=== PATIENT | female | born 1960 | race Caucasian/White ===

== ENCOUNTER → 2017-02-02 | Outpatient (REF) | payer OTHER ==
[~2017-02-02] MED LIST: CARB1TAB20 PO; D 1010004 PO; DIAZ10TA2 PO; DIAZ5TAB PO; FLUO40CA PO; LISI-542 PO; LISI10TA4 PO; NICO21PAT TD; PROP40TA PO; SERT50TA PO; TOFR50TA PO; TRAZ10TA PO; VITA100066 PO; VITA500T88 PO; VITMTA PO
[2017-02-02 19:37] LABS: FREE T4 0.91 NG/DL (0.76-1.46)
== END ==
LOC: M LAB REF 16:58
PROVIDERS: ATTEND Internal Medicine Nephrology
DX: E87.1 Hypo-osmolality and hyponatremia (principal)

== ENCOUNTER 2017-06-13 12:10 | Day surgery (SDC) | payer OTHER ==
[~2017-06-13] VITALS: Ht 167.6 cm; Wt 68.9 kg
[2017-06-13] MEDS ORDERED: LIDOCAINE 1% SDV 5 ML VIAL SQ PRN (12:15)
[2017-06-13] MEDS ORDERED: LR 1,000 ML IV ONE (12:15)
[2017-06-13] MEDS ORDERED: LIDOCAINE 2% INJ 100 MG/5 ML SDV (FOR ANES.) As Ordered ONE (13:16)
[2017-06-13] MEDS ORDERED: PROPOFOL 200 MG/20 ML VIAL As Ordered ONE (13:16)
[2017-06-13] MEDS ORDERED: MIDAZOLAM INJ 2 MG/2 ML VIAL (J2250) As Ordered ONE (13:17)
[2017-06-13] MEDS ORDERED: fentaNYL 100 MCG/2 ML INJECTION (J3010) As Ordered ONE (13:17)
[2017-06-13] MEDS ORDERED: CIPRODEX OTIC SUSP 7.5ML As Ordered ONE (14:14)
[2017-06-13] MEDS ORDERED: ONDANSETRON 4MG/2ML VIAL (J2405) As Ordered ONE (14:38)
[2017-06-13] MEDS ORDERED: LR 1,000 ML IV SCH (15:45)
[2017-06-13] MEDS ORDERED: ONDANSETRON 4MG/2ML VIAL (J2405) IV PRN (15:45)
[2017-06-13] MEDS ORDERED: PERCOCET 5MG/325MG TAB PO PRN (15:45)
[2017-06-13 16:14] VITALS: BP 212/93
--- NOTE | 2017-06-17 13:32 | RO ---
DATE OF PROCEDURE: 06/13/2017 PREOPERATIVE DIAGNOSIS: Chronic otitis media with effusion with conductive hearing loss. POSTOPERATIVE DIAGNOSES: 1. Chronic otitis media with effusion with conductive hearing loss. 2. Sensorineural hearing loss. PROCEDURE: Bilateral myringotomy tubes. SURGEON: Dr. Sanjeev [place] BAILIFF: ANESTHESIA: INDICATION: This is a 57-year-old who presents with a significant mixed hearing loss associated with a conductive loss of 30 dB from middle ear fluid. Additionally, she has a sensorineural loss in both ears. DESCRIPTION OF PROCEDURE: Satisfactory mask anesthesia administered. Right ear examined and cleaned under the microscope. An anterior inferior myringotomy was made. Serous fluid was suctioned from the middle ear. Ciprodex drops were used to irrigate, and a beveled bobbin tube was inserted. Ciprodex drops were instilled. The left ear was examined and cleaned under the microscope. Tympanic membrane retracted. No obvious inflammatory changes were noted. Anterior inferior myringotomy made. Ciprodex drops used to irrigate and a beveled bobbin tube inserted. Ciprodex drops instilled. She tolerated procedure well and was sent to recovery in satisfactory condition, and she will be seen back in the office in 1 week.
== END 2017-06-13 16:20 | disposition home or self-care (01) ==
LOC: M SDC 12:10
PROVIDERS: ATTEND Specialist
DX: H65.23 Chronic serous otitis media, bilateral (principal); I10 Essential (primary) hypertension; J44.9 Chronic obstructive pulmonary disease, unspecified; F41.9 Anxiety disorder, unspecified; F32.9 Major depressive disorder, single episode, unspecified; F17.210 Nicotine dependence, cigarettes, uncomplicated; Z79.899 Other long term (current) drug therapy
CPT/HCPCS: 69436; J2250; J2405; J3010

== ENCOUNTER 2017-11-11 11:40 | Inpatient (IN) | payer OTHER ==
[2017-11-11 12:51] LABS: HEMATOCRIT 43.6 % (36.0-47.0); HEMOGLOBIN 15.2 g/dl (12.0-16.0); MEAN CORPUSCULAR HEMOGLOBIN 32.6 pg (27.0-33.0); MEAN CORPUSCULAR HGB CONC 34.9 g/dl (32.0-36.5); MEAN CORPUSCULAR VOLUME 93.6 fl (80.0-96.0); PLATELET COUNT, AUTOMATED 294 10^3/uL (150-450); RED BLOOD COUNT 4.66 10^6/uL (4.00-5.40); RED CELL DISTRIBUTION WIDTH 12.4 % (11.5-14.5)
[2017-11-11 13:24] LABS: AMPHETAMINES LEVEL URINE NEGATIVE (NEGATIVE); BARBITURATES URINE NEGATIVE (NEGATIVE); BENZODIAZEPINES URINE POSITIVE (NEGATIVE); CANNABINOIDS URINE NEGATIVE (NEGATIVE); COCAINE METABOLITE URINE NEGATIVE (NEGATIVE); METHADONE URINE NEGATIVE (NEGATIVE); OPIATES URINE NEGATIVE (NEGATIVE); PHENCYCLIDINE URINE NEGATIVE (NEGATIVE)
[2017-11-11 13:33] LABS: ACETAMINOPHEN LEVEL < 2.0 UG/ML (10.0-30.0); ALBUMIN/GLOBULIN RATIO 1.14 (1.00-1.93); ALKALINE PHOSPHATASE 114 U/L (45-117); ALT/SGPT 28 U/L (12-78); ANION GAP 6 MEQ/L (8-16); AST/SGOT 27 U/L (7-37); BILIRUBIN,DIRECT 0.1 MG/DL (0.0-0.2); BILIRUBIN,TOTAL 0.3 MG/DL (0.2-1.0); BLOOD UREA NITROGEN 7 MG/DL (7-18); CALCIUM LEVEL 9.1 MG/DL (8.5-10.1); CARBON DIOXIDE LEVEL 30 MEQ/L (21-32); CHLORIDE LEVEL 97 MEQ/L (98-107); CREATININE FOR GFR 0.72 MG/DL (0.55-1.02); ETHYL ALCOHOL (ETHANOL) < 0.003 % (0.000-0.010); GLOMERULAR FILTRATION RATE > 60.0 (>51); GLUCOSE, FASTING 93 MG/DL (70-105); POTASSIUM SERUM 4.1 MEQ/L (3.5-5.1); SALICYLATE LEVEL 4.1 MG/DL (5.0-30.0); SODIUM LEVEL 133 MEQ/L (136-145); TOTAL PROTEIN 7.5 GM/DL (6.4-8.2)
[2017-11-11] MEDS: NICOTINE 21MG/24HR 1 EA TRANSDERMAL TD (14:15)
[2017-11-11] MEDS ORDERED: MAALOX 30 ML SUSP *UDC PO (14:30)
[2017-11-11] MEDS ORDERED: MOM 30ML SUSPENSION UDC PO (14:30)
[2017-11-11] MEDS ORDERED: LORazepam 2 MG TAB PO (16:00)
[2017-11-11] MEDS: THIAMINE 100 MG TAB PO (16:40)
[2017-11-11] MEDS: NICOTINE 14 MG/24 HR TRANSDERMAL TD (16:41)
[2017-11-11] MEDS: MULTIVITAMINS/MINERALS THERAP 1 TAB PO (16:41)
[2017-11-11] MEDS: FOLIC ACID 1 MG TAB PO (16:41)
[2017-11-11 17:09] LABS: CARBAMAZEPINE (TEGRETOL) LEVEL 6.4 UG/ML (4.0-10.0)
[2017-11-11] MEDS: BACTRIM 160MG/800MG DS TAB PO (20:12)
[2017-11-11] MEDS: traZODone 50 MG TAB PO ×2 (20:56→23:17)
[2017-11-11] MEDS: LORazepam 2 MG TAB PO (20:57)
[2017-11-12] MEDS: LORazepam 2 MG TAB PO ×3 (05:26→20:57)
[2017-11-12] MEDS: MULTIVITAMINS/MINERALS THERAP 1 TAB PO (08:28)
[2017-11-12] MEDS: BACTRIM 160MG/800MG DS TAB PO ×2 (08:28→20:56)
[2017-11-12] MEDS: FOLIC ACID 1 MG TAB PO (08:28)
[2017-11-12] MEDS: THIAMINE 100 MG TAB PO ×2 (08:28→20:56)
[2017-11-12] MEDS: SERTRALINE 100 MG TAB PO (08:28)
[2017-11-12] MEDS: LISINOPRIL 20 MG TAB PO (08:29)
[2017-11-12] MEDS: NICOTINE 14 MG/24 HR TRANSDERMAL TD (08:29)
[2017-11-12] MEDS ORDERED: NICOTINE 21MG/24HR 1 EA TRANSDERMAL TD (09:00)
[2017-11-12] MEDS: carBAMazepine 200 MG TAB PO ×2 (13:21→20:56)
[2017-11-12] MEDS: DULoxetine 30 MG CAP (CYMBALTA) PO (13:21)
[2017-11-12] MEDS: QUEtiapine FUMARATE 25 MG TAB PO (13:21)
[2017-11-12] MEDS: QUEtiapine FUMARATE 50 MG TAB PO (20:56)
[2017-11-13] MEDS: LORazepam 2 MG TAB PO ×3 (07:36→20:58)
[2017-11-13] MEDS: DULoxetine 30 MG CAP (CYMBALTA) PO (08:29)
[2017-11-13] MEDS: BACTRIM 160MG/800MG DS TAB PO ×2 (08:29→20:58)
[2017-11-13] MEDS: MULTIVITAMINS/MINERALS THERAP 1 TAB PO (08:29)
[2017-11-13] MEDS: LISINOPRIL 20 MG TAB PO (08:29)
[2017-11-13] MEDS: FOLIC ACID 1 MG TAB PO (08:29)
[2017-11-13] MEDS: QUEtiapine FUMARATE 25 MG TAB PO (08:29)
[2017-11-13] MEDS: THIAMINE 100 MG TAB PO ×2 (08:29→20:58)
[2017-11-13] MEDS: NICOTINE 14 MG/24 HR TRANSDERMAL TD (08:29)
[2017-11-13] MEDS: carBAMazepine 200 MG TAB PO ×2 (08:30→20:58)
[2017-11-13] MEDS: QUEtiapine FUMARATE 50 MG TAB PO (20:58)
[2017-11-14] MEDS: LORazepam 2 MG TAB PO ×2 (00:33→14:37)
[2017-11-14] MEDS: QUEtiapine FUMARATE 25 MG TAB PO (08:02)
[2017-11-14] MEDS: DULoxetine 30 MG CAP (CYMBALTA) PO ×2 (08:02→21:05)
[2017-11-14] MEDS: MULTIVITAMINS/MINERALS THERAP 1 TAB PO (08:02)
[2017-11-14] MEDS: THIAMINE 100 MG TAB PO (08:02)
[2017-11-14] MEDS: FOLIC ACID 1 MG TAB PO (08:02)
[2017-11-14] MEDS: LISINOPRIL 20 MG TAB PO (08:03)
[2017-11-14] MEDS: carBAMazepine 200 MG TAB PO ×2 (08:03→21:05)
[2017-11-14] MEDS: BACTRIM 160MG/800MG DS TAB PO ×2 (08:03→21:05)
[2017-11-14] MEDS: NICOTINE 14 MG/24 HR TRANSDERMAL TD (08:03)
[2017-11-14] MEDS: MIRTAZAPINE 7.5MG PER 1/2 TABLET PO (21:05)
[2017-11-14] MEDS: QUEtiapine FUMARATE 50 MG TAB PO (21:05)
[2017-11-15] MEDS: LORazepam 2 MG TAB PO (03:51)
[2017-11-15] MEDS: DULoxetine 30 MG CAP (CYMBALTA) PO (08:34)
[2017-11-15] MEDS: MULTIVITAMINS/MINERALS THERAP 1 TAB PO (08:34)
[2017-11-15] MEDS: BACTRIM 160MG/800MG DS TAB PO ×2 (08:34→21:03)
[2017-11-15] MEDS: LISINOPRIL 20 MG TAB PO (08:34)
[2017-11-15] MEDS: carBAMazepine 200 MG TAB PO (08:34)
[2017-11-15] MEDS: QUEtiapine FUMARATE 25 MG TAB PO (08:34)
[2017-11-15] MEDS: FOLIC ACID 1 MG TAB PO (08:34)
[2017-11-15] MEDS: NICOTINE 14 MG/24 HR TRANSDERMAL TD (08:35)
[2017-11-15 09:25] LABS: ANION GAP 11 MEQ/L (8-16); BLOOD UREA NITROGEN 4 MG/DL (7-18); CALCIUM LEVEL 8.9 MG/DL (8.5-10.1); CARBON DIOXIDE LEVEL 22 MEQ/L (21-32); CHLORIDE LEVEL 92 MEQ/L (98-107); CREATININE FOR GFR 0.89 MG/DL (0.55-1.02); GLOMERULAR FILTRATION RATE > 60.0 (>51); GLUCOSE, FASTING 198 MG/DL (70-105); POTASSIUM SERUM 4.9 MEQ/L (3.5-5.1); SODIUM LEVEL 125 MEQ/L (136-145)
[2017-11-15] MEDS: GABAPENTIN 100 MG CAP PO ×2 (12:13→21:03)
[2017-11-15] MEDS: ACETAMINOPHEN TAB 650MG DOSE (2X325MG) PO (12:13)
[2017-11-15] MEDS: diazePAM 5 MG TAB PO ×2 (12:14→21:03)
[2017-11-15] MEDS: PROPRANOLOL 60 MG LA CAP PO (15:29)
[2017-11-15] MEDS: MIRTAZAPINE 7.5MG PER 1/2 TABLET PO (21:03)
[2017-11-15] MEDS: QUEtiapine FUMARATE 50 MG TAB PO (21:03)
[2017-11-16 08:25] LABS: ANION GAP 5 MEQ/L (8-16); BLOOD UREA NITROGEN 4 MG/DL (7-18); CALCIUM LEVEL 8.9 MG/DL (8.5-10.1); CARBON DIOXIDE LEVEL 29 MEQ/L (21-32); CHLORIDE LEVEL 97 MEQ/L (98-107); CREATININE FOR GFR 0.68 MG/DL (0.55-1.02); GLOMERULAR FILTRATION RATE > 60.0 (>51); GLUCOSE, FASTING 134 MG/DL (70-105); POTASSIUM SERUM 4.4 MEQ/L (3.5-5.1); SODIUM LEVEL 131 MEQ/L (136-145)
[2017-11-16] MEDS: diazePAM 5 MG TAB PO ×2 (08:30→21:59)
[2017-11-16] MEDS: FOLIC ACID 1 MG TAB PO (08:30)
[2017-11-16] MEDS: MULTIVITAMINS/MINERALS THERAP 1 TAB PO (08:30)
[2017-11-16] MEDS: GABAPENTIN 100 MG CAP PO ×3 (08:30→21:59)
[2017-11-16] MEDS: DULoxetine 30 MG CAP (CYMBALTA) PO (08:31)
[2017-11-16] MEDS: BACTRIM 160MG/800MG DS TAB PO (08:31)
[2017-11-16] MEDS: LISINOPRIL 20 MG TAB PO (08:31)
[2017-11-16] MEDS: QUEtiapine FUMARATE 25 MG TAB PO (08:31)
[2017-11-16] MEDS: NICOTINE 14 MG/24 HR TRANSDERMAL TD (08:32)
[2017-11-16] MEDS: PROPRANOLOL 60 MG LA CAP PO (12:05)
[2017-11-16] MEDS: QUEtiapine FUMARATE 50 MG TAB PO (21:59)
[2017-11-16] MEDS: traZODone 100 MG TAB PO (23:14)
[2017-11-17] MEDS: ACETAMINOPHEN TAB 650MG DOSE (2X325MG) PO ×2 (02:04→21:04)
[2017-11-17 07:49] LABS: ANION GAP 6 MEQ/L (8-16); BLOOD UREA NITROGEN 8 MG/DL (7-18); CARBON DIOXIDE LEVEL 28 MEQ/L (21-32); CHLORIDE LEVEL 98 MEQ/L (98-107); CREATININE FOR GFR 0.71 MG/DL (0.55-1.02); GLOMERULAR FILTRATION RATE > 60.0 (>51); GLUCOSE, FASTING 107 MG/DL (70-105); POTASSIUM SERUM 4.2 MEQ/L (3.5-5.1); SODIUM LEVEL 132 MEQ/L (136-145)
[2017-11-17] MEDS: NICOTINE 14 MG/24 HR TRANSDERMAL TD ×3 (09:00→11:57)
[2017-11-17] MEDS: GABAPENTIN 100 MG CAP PO ×3 (09:23→21:04)
[2017-11-17] MEDS: MULTIVITAMINS/MINERALS THERAP 1 TAB PO (09:23)
[2017-11-17] MEDS: FOLIC ACID 1 MG TAB PO (09:23)
[2017-11-17] MEDS: DULoxetine 30 MG CAP (CYMBALTA) PO (09:23)
[2017-11-17] MEDS: LISINOPRIL 20 MG TAB PO (09:23)
[2017-11-17] MEDS: diazePAM 5 MG TAB PO ×2 (09:23→21:03)
[2017-11-17] MEDS: QUEtiapine FUMARATE 25 MG TAB PO (09:24)
[2017-11-17] MEDS: PROPRANOLOL 60 MG LA CAP PO (11:50)
[2017-11-17] MEDS: NICOTINE 7 MG/24 HR TRANSDERMAL TD (13:38)
[2017-11-17] MEDS: SERTRALINE HCL 50 MG TAB PO (21:03)
[2017-11-17] MEDS: QUEtiapine FUMARATE 50 MG TAB PO (21:04)
[2017-11-17] MEDS: traZODone 100 MG TAB PO (21:04)
[2017-11-18] MEDS: FOLIC ACID 1 MG TAB PO (08:47)
[2017-11-18] MEDS: GABAPENTIN 100 MG CAP PO (08:47)
[2017-11-18] MEDS: diazePAM 5 MG TAB PO (08:47)
[2017-11-18] MEDS: DULoxetine 30 MG CAP (CYMBALTA) PO (08:47)
[2017-11-18] MEDS: MULTIVITAMINS/MINERALS THERAP 1 TAB PO (08:47)
[2017-11-18] MEDS: LISINOPRIL 20 MG TAB PO (08:47)
[2017-11-18] MEDS: NICOTINE 7 MG/24 HR TRANSDERMAL TD (08:49)
[2017-11-18] MEDS: QUEtiapine FUMARATE 25 MG TAB PO (08:49)
== END 2017-11-18 11:40 | disposition home or self-care (01) | DRG 885 ==
LOC: M ED 11:40 → M ED INP 14:46 → M PSY 15:17
DX: F33.2 Major depressive disorder, recurrent severe without psychotic features (principal); F41.1 Generalized anxiety disorder; Z79.899 Other long term (current) drug therapy; Z88.5 Allergy status to narcotic agent; I10 Essential (primary) hypertension; F17.210 Nicotine dependence, cigarettes, uncomplicated; E55.9 Vitamin D deficiency, unspecified; J06.9 Acute upper respiratory infection, unspecified; M26.629 Arthralgia of temporomandibular joint, unspecified side